=== PATIENT | female | born 1965 | race Caucasian/White ===

== ENCOUNTER 2020-09-20 11:29 | Emergency (ER) | payer BC, OTHER ==
[2020-09-20 11:40] VITALS: RESP 18; TEMP 98.2
[2020-09-20] MEDS ORDERED: DIAZEPAM 5 MG/ML 2 ML INJ IVP STA (12:05)
[2020-09-20] MEDS ORDERED: SODIUM CHLORIDE 0.9% 1,000 ML IV STA (12:05)
--- NOTE | 2020-09-20 12:09 | ED ---
General Adult HPI - General Chief complaint: Neuro Symptoms/Deficit Stated complaint: Stroke Symptoms/Numbness/Headache Time Seen by Provider: 09/20/20 11:52 Source: patient Mode of arrival: ambulatory Limitations: no limitations - History of Present Illness Initial comments: Dictation was produced using [employer] dictation software. please excuse any grammatical, word or spelling errors. Chief Complaint: 55-year-old female presents to the emergency department severe neck pain History of Present Illness: 55-year-old female presents to the emergency department for severe right-sided neck pain. She states that the pain as sharp. It feels like a vice technical services representative to her right shoulder. The pain radiates up her trapezius right neck into the occipital area. It also radiates to her distal right lower extremity. Patient states that she was walking around in her house when all of a sudden she developed the symptoms. She wasn't performing any exertional movements. Patient states that immediately after the onset of symptoms she started to feel perhaps some paresthesias to her right distal extremity. She has no other neurologic deficits. No weakness. Patient states she's been on a low-carb diet for the last month or so. Patient has history of migraines patient is not taking migraine medications for this. She has no other medical conditions. The ROS documented in this emergency department record has been reviewed and con firmed by me. Those systems with pertinent positive or negative responses have been documented in the HPI. All other systems are other negative and/or noncontributory. PHYSICAL EXAM: General Impression: Alert and oriented x3, acute distress secondary to pain HEENT: Normocephalic atraumatic, extra-ocular movements intact, pupils equal and reactive to light bilaterally, mucous membranes moist. Cardiovascular: Heart regular rate and rhythm Chest: Able to complete full sentences, no retractions, no tachypnea Abdomen: abdomen soft, non-tender, non-distended, no organomegaly Musculoskeletal: Pulses present and equal in all extremities, no peripheral edema Motor: no focal deficits noted Neurological: CN II-XII grossly intact, no focal motor or sensory deficits noted, NIH 0 Skin: Intact with no visualized rashes ED course: 55-year-old female presents with chief complaint of right upper ext remity paresthesias, severe right-sided neck pain. Vital signs upon arrival are within acceptable limits. Patient is in acute distress with severe symptoms. More than likely patient's symptoms are secondary to severe muscle strain however artery dissection of one of the neck vessels is part of the differential. NIH is 0. She has no focal neurologic deficits. Laboratory evaluation obtained. CBC is unremarkable. Coag panel is negative. Metabolic panel shows bicarb of 17 with a gap of 15. Lactic acid was 3.7. CT angios does not show an acute processes. No aneurysm or dissections. Dis position options were discussed with patient she wants to be discharge. She was encouraged to be admitted for IV hydration given that there is significant acidemia. She wants to attempt to treat her symptoms at home. She is strongly urged to hydrate herself and perhaps take a break from her diet for the next 2-3 days. She is advised follow-up with primary care physician. She was reevaluated at bedside with improvement of her symptoms. EKG interpretation: Ventricular rate a 2, normal sinus rhythm,. 174, QRS 82, QTc 467. No NM prolongation, no QTC prolongation, no ST or T-wave changes noted. Overall, this EKG is unremarkable - Related Data Allergies Allergy/AdvReac Type Severity Reaction Status Date / Time No Known Allergies Allergy Verified 09/20/20 11:40 Review of Systems ROS Statement: Those systems with pertinent positive or pertinent negative responses have been documented in the HPI. ROS Other: All systems not noted in ROS Statement are negative. Past Medical History Past Medical History: Unable to Obtain Additional Past Medical History / Comment(s): headaches Past Surgical History: Unable to Obtain Past Psychological History: No Psychological Hx Reported Smoking Status: Never smoker Past Alcohol Use History: None Reported Past Drug Use History: None Reported General Exam Limitations: no limitations Course Vital Signs 09/20/20 09/20/20 11:36 12:18 Temperature 98.2 F Pulse Rate 88 81 Respiratory 18 18 Rate Blood Pressure 130/80 137/91 O2 Sat by Pulse 100 99 Oximetry Medical Decision Making - Lab Data Result diagrams: 09/20/20 12:13 09/20/20 12:13 Lab Results 09/20/20 09/20/20 09/20/20 Range/Units 12:13 12:13 12:13 WBC 7.0 (3.8-10.6) k/uL RBC 5.56 H (3.80-5.40) m/uL Hgb 16.0 (11.4-16.0) gm/dL Hct 47.6 H (34.0-46.0) % MCV 85.7 (80.0-100.0) fL MCH 28.8 (25.0-35.0) pg MCHC 33.6 (31.0-37.0) g/dL RDW 13.0 (11.5-15.5) % Plt Count 293 (150-450) k/uL MPV 8.6 Neutrophils % 37 % Lymphocytes % 52 % Monocytes % 4 % Eosinophils % 4 % Basophils % 1 % Neutrophils # 2.5 (1.3-7.7) k/uL Lymphocytes # 3.6 (1.0-4.8) k/uL Monocytes # 0.3 (0-1.0) k/uL Eosinophils # 0.3 (0-0.7) k/uL Basophils # 0.1 (0-0.2) k/uL PT 10.2 (9.0-12.0) sec INR 0.9 (<1.2) APTT 20.2 L (22.0-30.0) sec Sodium 139 (137-145) mmol/L Potassium 4.1 (3.5-5.1) mmol/L Chloride 107 (98-107) mmol/L Carbon Dioxide 17 L (22-30) mmol/L Anion Gap 15 mmol/L BUN 11 (7-17) mg/dL Creatinine 0.77 (0.52-1.04) mg/dL Est GFR (CKD-EPI)AfAm >90 (>60 ml/min/1.73 sqM) Est GFR (CKD-EPI)NonAf 88 (>60 ml/min/1.73 sqM) Glucose 111 H (74-99) mg/dL Plasma Lactic Acid Burak (0.7-2.0) mmol/L Calcium 10.1 (8.4-10.2) mg/dL Magnesium 1.8 (1.6-2.3) mg/dL 09/20/20 Range/Units 12:13 WBC (3.8-10.6) k/uL RBC (3.80-5.40) m/uL Hgb (11.4-16.0) gm/dL Hct (34.0-46.0) % MCV (80.0-100.0) fL MCH (25.0-35.0) pg MCHC (31.0-37.0) g/dL RDW (11.5-15.5) % Plt Count (150-450) k/uL MPV Neutrophils % % Lymphocytes % % Monocytes % % Eosinophils % % Basophils % % Neutrophils # (1.3-7.7) k/uL Lymphocytes # (1.0-4.8) k/uL Monocytes # (0-1.0) k/uL Eosinophils # (0-0.7) k/uL Basophils # (0-0.2) k/uL PT (9.0-12.0) sec INR (<1.2) APTT (22.0-30.0) sec Sodium (137-145) mmol/L Potassium (3.5-5.1) mmol/L Chloride (98-107) mmol/L Carbon Dioxide (22-30) mmol/L Anion Gap mmol/L BUN (7-17) mg/dL Creatinine (0.52-1.04) mg/dL Est GFR (CKD-EPI)AfAm (>60 ml/min/1.73 sqM) Est GFR (CKD-EPI)NonAf (>60 ml/min/1.73 sqM) Glucose (74-99) mg/dL Plasma Lactic Acid Burak 3.7 H* (0.7-2.0) mmol/L Calcium (8.4-10.2) mg/dL Magnesium (1.6-2.3) mg/dL Disposition Clinical Impression: Neck strain, Acidemia, Dehydration Disposition: HOME SELF-CARE Condition: Fair Instructions (If sedation given, give patient instructions): Dehydration (ED) Is patient prescribed a controlled substance at d/c from ED?: No Referrals: Keny Raymond MD [Primary Care Provider] - 1-2 days
[2020-09-20 12:29] LABS: Basophils # (A) 0.1 k/uL (0-0.2); Basophils % (A) 1 %; Eosinophils # (A) 0.3 k/uL (0-0.7); Eosinophils % (A) 4 %; HCT 47.6 % (34.0-46.0); Lymphocytes # (A) 3.6 k/uL (1.0-4.8); Lymphocytes % (A) 52 %; MCH 28.8 pg (25.0-35.0); MCHC 33.6 g/dL (31.0-37.0); MCV 85.7 fL (80.0-100.0); Mean Platelet Volume 8.6; Monocytes # (A) 0.3 k/uL (0-1.0); Monocytes % (A) 4 %; Neutrophils # (A) 2.5 k/uL (1.3-7.7); Neutrophils % (A) 37 %; Platelet Count 293 k/uL (150-450); RBC 5.56 m/uL (3.80-5.40)
[2020-09-20 12:38] LABS: African American GFR (CKD) >90 (>60 ml/min/1.73 sqM); Anion Gap 15 mmol/L; Blood Urea Nitrogen 11 mg/dL (7-17); Calcium 10.1 mg/dL (8.4-10.2); Carbon Dioxide 17 mmol/L (22-30); Chloride 107 mmol/L (98-107); Glucose 111 mg/dL (74-99); Magnesium 1.8 mg/dL (1.6-2.3); Non-African American GFR(CKD) 88 (>60 ml/min/1.73 sqM); Potassium 4.1 mmol/L (3.5-5.1); Sodium 139 mmol/L (137-145)
[2020-09-20 12:45] LABS: INR 0.9 (<1.2); Prothrombin Time 10.2 sec (9.0-12.0)
[2020-09-20 12:48] LABS: Partial Thromboplastin Time 20.2 sec (22.0-30.0)
[2020-09-20] MEDS ORDERED: ONDANSETRON 4 MG/2 ML VIAL IVP STA (12:50)
--- NOTE | 2020-09-20 13:24 | CT ---
EXAMINATION TYPE: CT angio head neck DATE OF EXAM: 09/20/2020 COMPARISON: None HISTORY: Stroke like symptoms, pain right side head, neck and arm CT DLP: 1439.1 mGycm Automated exposure control for dose reduction was used. CONTRAST: Performed without and with IV Contrast, patient injected with 65 mL of Isovue 370. There are 3-D post processed images. The noncontrast images show no mass effect nor midline shift. There is no sign of intracranial hemorr nataly. There is minimal cerebral atrophy. There is normal branching pattern of the great vessels on the aortic arch. There is bilateral arteria l flow in the subclavian arteries. There is arterial flow in the common internal and external carotid arteries. There is arterial flow in both vertebral arteries. There is wide patency of the carotid ar davide bifurcations. There is no evidence of carotid artery or vertebral artery aneurysm or dissection. There is no evidence of stenosis. There is arterial flow in the vertebrobasilar artery system. There is arterial flow in the anterior middle and posterior cerebral arteries. I see no evidence of i ntracranial arterial stenosis. There is normal enhancement of the venous sinuses. There is no mass ef fect. There is no sign of intracranial aneurysm or neovascularity. IMPRESSION: No significant angiographic abnormality. No acute intracranial abnormality on the noncontrast head CT scan. There is evidence of some pansinusitis.
[2020-09-20 13:55] VITALS: BP 126/93; PULSE 68
== END 2020-09-20 13:55 | disposition home or self-care (01) ==
LOC: EC 11:29
DX: S16.1XXA Strain of muscle, fascia and tendon at neck level, initial encounter (principal); E86.0 Dehydration; E87.2 Acidosis; Y93.01 Activity, walking, marching and hiking
CPT/HCPCS: 36415; 93005; 80048; 83605; 83735; 85025; 85610; 85730; 70496; 70498; 99284; 96374; 96375; 96361 ×2; J3360; J2405; Q9967

== ENCOUNTER 2021-01-25 13:37 | Emergency (ER) | payer OTHER ==
[2021-01-25 14:18] VITALS: RESP 18; TEMP 98.2
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
--- NOTE | 2021-01-25 15:15 | XR ---
EXAMINATION TYPE: XR elbow complete LT DATE OF EXAM: 01/25/2021 COMPARISON: NONE HISTORY: Fall. Pain TECHNIQUE: 3 views FINDINGS: I see no fracture nor dislocation. Joint spaces are normal. There is no sign of joint effus ion. IMPRESSION: Negative left elbow exam.
--- NOTE | 2021-01-25 15:19 | XR ---
EXAMINATION TYPE: XR forearm LT DATE OF EXAM: 01/25/2021 COMPARISON: NONE HISTORY: Pain TECHNIQUE: 2 views FINDINGS: There is some cortical buckling distal radius related to acute nondisplaced fracture. Elbow joint appears intact. IMPRESSION: Acute nondisplaced fracture distal radius.
--- NOTE | 2021-01-25 15:20 | XR ---
EXAMINATION TYPE: XR hand complete LT DATE OF EXAM: 01/25/2021 COMPARISON: NONE HISTORY: Pain TECHNIQUE: 3 views FINDINGS: There is nondisplaced transverse fracture distal radial metaphysis. There is no dislocation . Carpal bones are intact. The fingers are intact. IMPRESSION: Acute fracture distal radius.
--- NOTE | 2021-01-25 15:22 | XR ---
EXAMINATION TYPE: XR wrist complete LT DATE OF EXAM: 01/25/2021 COMPARISON: NONE HISTORY: Pain TECHNIQUE: 4 views FINDINGS: There is acute transverse fracture distal radial metaphysis with minimal cortical buckling. No displacement. Carpal bones are intact. Distal ulna is intact IMPRESSION: Acute fracture distal radius.
[2021-01-25] MEDS ORDERED: IBUPROFEN 600 MG TAB PO STA (15:27)
[2021-01-25 16:21] VITALS: BP 125/77; PULSE 71
== END 2021-01-25 16:21 | disposition home or self-care (01) ==
LOC: EC 13:37
DX: S52.592A Other fractures of lower end of left radius, initial encounter for closed fracture (principal); V18.0XXA Pedal cycle driver injured in noncollision transport accident in nontraffic accident, initial encounter; Y93.55 Activity, bike riding
CPT/HCPCS: 29125; 99283